=== PATIENT | male | born 1995 | race Caucasian/White ===

== ENCOUNTER 2016-12-21 22:42 | Emergency (ER) | payer OTHER ==
[~2016-12-21] VITALS: Ht 198.1 cm; Wt 81.8 kg
[2016-12-21 22:50] VITALS: BP 126/78; PULSE 77; RESP 16; O2SAT 97
--- NOTE | 2016-12-21 23:53 | ED.REPORT ---
HPI-Extremity Problem Upper Date of Service December 21, 2016 ED Provider: Dr. Ric Parkinson D.O. A healthy 21 year old male presents to the ED with a left hand laceration onset just prior to arrival, while at work. The patient caught a sharp metal object as it fell and it cut the base of his left thumb. He denies additional injury/ trauma, decreased ROM, or other symptoms. Nursing Notes Stated Complaint: LAC TO LEFT HAND L&I Chief Complaint: Laceration Nursing Notes Reviewed: Yes Allergies: Coded Allergies: No Known Allergies (Verified Allergy, Unknown, 01/16/15) No Active Prescriptions or Reported Meds General Time Seen by MD: 23:53 Chief Complaint Other (Laceration) Hx Obtained From: Patient Arrived By: Walk-in Onset Occurred: Just prior to arrival Symptom Duration: Since onset Location: : Hand left Quality: Painful Severity: Current: Moderate Severity: Maximum: Moderate Pertinent Negative: Relieved by nothing Immunizations: Tetanus w/in 5 - 10 yrs Recent Healthcare: No recent doctor visit Past Medical History Past Medical History Normally healthy Past Surgical History None reported Smoking History Never Smoker Social History Alcohol Use: Denies alcohol use Drug Use: Denies drug use Ambulatory Status Independent Review of Systems Review of Systems Note: + Left hand laceration - Left hand decreased ROM Constitutional: Denies: Fever Musculoskeletal: Reports: Extremity pain (Left hand) Complete sys rev & neg: except as marked. Respiratory: Denies: Non-productive cough, Shortness of breath GI: Denies: Diarrhea, Vomiting Physical Exam Initial Vital Signs Vital Signs (First) Date Time Temp Pulse Resp B/P Pulse Ox O2 Delivery O2 Flow Rate FiO2 12/21/16 22:50 36.8 77 16 126/78 97 Room Air Initial VS: Reviewed Head / Eyes: Atraumatic, Normocephalic ENT: Conjunctiva normal, No scleral icterus Neck: Supple, Full range of motion Skin: Warm, Dry, No cyanosis Neurologic: Alert, Oriented, Nonfocal Psychiatric: Mood/affect normal, Behavior normal, Normal thought content General/Constitutional: Awake, Alert, No acute distress Wrist / Hand: Neurologic intact, Vascular intact, Tendon function NL Trauma / Burn / Environmental: Positive: Laceration (0.5 cm base of left thumb without tendon or artery involvement) Procedures Laceration Management Time: 00:10 Procedure Performed by: ED physician Consent / Setup / Site Prep: Consent from patient, Time-out performed, Hand hygiene observed, Stand sterile technique Location of Wound: 0.5 cm base of left thumb Local Anesthesia: Lidocaine 1% Wound Preparation: Betadine, Normal saline Irrigation: Copious Foreign Body Explore / Removal: Explored for foreign body Repair Skin: ___ O (6), Nylon # Sutures - Skin: 3 Closure Layers: 1 Suture Technique: Simple Post-Procedure / Complications: Antibiotic oint applied, Dressing applied, No complications, Condition improved, Tolerated procedure well, Patient stable Re-Eval/Medical Decision Re-Evaluation/Progress : Time of Eval: 00:10 Patient Status: Condition improved Re-Evaluation/Progress Note: Laceration management performed. Discussed with patient physical exam findings, diagnosis, and plan for discharge. Follow-up and return to the ER instructions given. Patient agrees with plan for care and all questions were addressed. Counseled Regarding: Diagnosis, Need for follow-up, When/why to return to ED Discharge & Departure Impression: Primary Impression: Laceration Disposition: Home Discharge Condition All VS Reviewed: Yes Condition: Improved Patient Instructions: Finger Laceration (ED) Additional Instructions: Keep the wound clean, dry and covered with antibacterial ointment and a bandage. Have a wound check in 48-72 hours. Stitches out in 7-10 days. Watch for signs of infection: Pain, redness, swelling or discharge. Be seen right away if any of these occur. Referrals: [facility] (PCP) [facility] Attestation Portions of this note were transcribed by Koki Osborne. I, Dr. Parkinson, personally performed the history, physical exam, and medical decision-making; I reviewed and confirmed the accuracy of the information in the transcribed note. Signed by: Zee Mancilla, 12/22/2016, 01:30 copies to: [facility] Ric Parkinson DO December 21, 2016 23:53 KOKI OSBORNE December 22, 2016 00:01
[2016-12-22] MEDS ORDERED: TdaP Vaccine 0.5 mL Inj IM ONE
[2016-12-22] MEDS ORDERED: Lidocaine 1% 50 mL Inj NERVEBLOCK ONE
[2016-12-22 00:22] VITALS: PULSE 69; RESP 20; O2SAT 99
== END 2016-12-22 00:43 | disposition home or self-care (01) ==
LOC: SED 22:42
DX: S61.012A Laceration without foreign body of left thumb without damage to nail, initial encounter (principal); W26.8XXA Contact with other sharp object(s), not elsewhere classified, initial encounter; Y93.89 Activity, other specified; Y92.69 Other specified industrial and construction area as the place of occurrence of the external cause; Y99.0 Civilian activity done for income or pay; Z23 Encounter for immunization